=== PATIENT | male | born 1970 | race Caucasian/White ===

== ENCOUNTER 2018-01-13 11:33 | Emergency (ER) | payer OTHER ==
[2018-01-13] MEDS: morphine 2 MG INJ IV (12:46)
[2018-01-13] MEDS: ONDANSETRON 4 MG INJ IV (12:46)
[2018-01-13] MEDS: SOD CHLORIDE 0.9% 1,000 ML IV (12:47)
[2018-01-13 12:58] LABS: ADD MAN DIFF? NO
[2018-01-13 13:01] LABS: WHITE BLOOD COUNT 10.5 10^3/ul (4.8-10.8)
[2018-01-13 13:01] LABS: BASOPHIL # 0.1 10^3/ul (0.0-0.1); BASOPHILS % 0.9 % (0.0-2.0); EOSINOPHILS # 0.5 10^3/ul (0.0-0.5); EOSINOPHILS % 4.8 % (0.0-7.0); HEMATOCRIT 47.3 % (42.0-52.0); HEMOGLOBIN 16.6 g/dl (14.0-18.0); LYMPHOCYTES # 1.7 10^3/ul (0.8-2.9); MEAN CORPUSCULAR HEMOGLOBIN 30.6 pg (29.0-33.0); MEAN CORPUSCULAR HGB CONC 35.1 g/dl (32.0-37.0); MEAN CORPUSCULAR VOLUME 87.1 fl (82.0-101.0); MEAN PLATELET VOLUME 9.8 fl (7.4-10.4); MONOCYTE # 0.7 10^3/ul (0.3-0.9); MONOCYTES % 6.7 % (0.0-11.0); NEUTROPHIL # 7.5 10^3/ul (1.6-7.5); NEUTROPHILS % 71.2 % (39.0-77.0); PLATELET COUNT 229 10^3/UL (140-415); RED BLOOD COUNT 5.43 10^6/ul (4.70-6.10); RED CELL DISTRIBUTION WIDTH 12.1 % (11.5-14.5)
[2018-01-13 13:53] LABS: ANION GAP 19 (8-16); BLOOD UREA NITROGEN 15 mg/dl (7-20); CALCIUM 9.5 mg/dl (8.4-10.2); CARBON DIOXIDE 25 mmol/L (21-31); CHLORIDE 100 mmol/L (97-110); CREATININE 0.68 mg/dl (0.61-1.24); GLUCOSE 288 mg/dl (70-220); POTASSIUM 4.1 mmol/L (3.5-5.1); SODIUM 140 mmol/L (135-144)
[2018-01-13] MEDS: SOD CHLORIDE 0.9% 100 ML (14:34)
[2018-01-13] MEDS: IOHEXOL 300MG/ML 150 ML BTL (14:34)
[2018-01-13] MEDS: morphine 4 MG/ML VIAL IV (15:34)
== END 2018-01-13 17:25 | disposition home or self-care (01) ==
LOC: FTE 11:33
DX: M54.5 Low back pain (principal); M54.2 Cervicalgia; M53.3 Sacrococcygeal disorders, not elsewhere classified; R10.9 Unspecified abdominal pain; E11.9 Type 2 diabetes mellitus without complications
CPT/HCPCS: 71260; 72125; 74177; 80048; 85025; 96374; 96375; 96376; 99285-25